=== PATIENT | female | born 1965 | race Caucasian/White ===

== ENCOUNTER 2021-04-04 22:18 | Inpatient (IN) | payer OTHER ==
[~2021-04-04] VITALS: Ht 162.6 cm; Wt 77.1 kg
--- NOTE | 2021-04-04 21:20 | NUR ---
Received report from Leyda LANTIGUA RN from [facility].
[2021-04-04 22:20] VITALS: BP 113/73
--- NOTE | 2021-04-04 22:20 | NUR ---
RADIOCHEMICAL TECHNICIAN NOTE PATIENT TRANSFERRED FROM [place] ACCOMPANIED BY EMT VIA [facility] WITH ACLS PROTOCOL. PATIENT IS AOX3, ON O2, 3L/MIN VIA NC SATURATING 93%. RESPIRATIONS ARE EVEN AND UNLABORED. NO S/S SOB NOTED. NO C/O PAIN NOTED AND IN NO APPARENT DISTRESS. IV RAC 20G, INATAL PHYSICAL ASSESSMENT COMPLETED, SKIN ASSESSMENT COMPLETED, PHOTOS TAKEN AND PLACED IN CHART. TANK FARM ATTENDANT OBTAINED VITALS SIGNS AND COMPLETED BELONGING LIST. BED IS LOW AND LOCKED, HOB ELEVATED IN SEMI FOWLERS, SIDE RIAL UP X2, CALL LIGHT WITHIN REACH, INFORMED ON USE. WILL CONTINUE TO MONITOR THROUGHOUT SHIFT.
[2021-04-04] MEDS ORDERED: ACETAMINOPHEN 325 MG TABLET PO PRN (23:30)
[2021-04-04] MEDS ORDERED: ONDANSETRON HCL/PF 4 MG/2 ML VIAL IVP PRN (23:30)
[2021-04-04] MEDS ORDERED: ALBUTEROL FS 2.5 MG/3 ML VIAL.NEB NEB PRN (23:45)
[2021-04-05] VITALS: BP 117/72
[2021-04-05] MEDS ORDERED: CEFTRIAXONE 1 G VIAL ONE (00:09)
[2021-04-05] MEDS: CEFTRIAXONE 1 G in IV D5W 50 ML IV SCH ×2 (00:12→22:20)
[2021-04-05] MEDS: DEXAMETHASONE SOD PHOSPHATE 10 MG/ML VIAL IV SCH ×3 (00:12→18:26)
[2021-04-05 00:45] LABS: C-REACTIVE PROTEIN 13.3 mg/dL (0.0-0.9)
[2021-04-05 04:00] VITALS: BP 129/73
--- NOTE | 2021-04-05 06:33 | NUR ---
RN NOTES DURING SHIFT NO CHANGES NOTED. NO S/S OF ACUTE DISTRESS NOTED. BREATHING NORMAL NO SOB NOTED. CONTINUES ON O2 3L/MIN VIA NC SATURATING 92%. IV'S INTACT DURING SHIFT ROCEPHIN AND DECADRON GIVEN ORDERED. AM CARE GIVEN KEPT CLEAN DRY AND COMFORTABLE. ALL SAFETY MEASURES IN PLACE, CALL LIGHT WITHIN REACH. WILL ENDORSE TO AM NURSE FOR NILDA.
[2021-04-05 06:40] LABS: BASOPHILS % (AUTO) 0.2 % (0.0-2.0); HEMATOCRIT 41 % (33-45); HEMOGLOBIN 13.8 g/dL (11.5-14.8); LYMPHOCYTES # (AUTO) 0.4 K/uL (0.8-4.8); MEAN CORPUSCULAR HGB CONC 34 g/dl (31.0-36.0); MEAN CORPUSCULAR VOLUME 86 fL (82-100); MONOCYTES # (AUTO) 0.2 K/uL (0.1-1.30); MONOCYTES % (AUTO) 7.6 % (2.0-12.0); NEUTROPHILS # (AUTO) 1.4 K/uL (1.8-8.9); NEUTROPHILS % (AUTO) 72.2 % (43.0-81.0); PLATELET COUNT (AUTO) 241 K/uL (150-450); RED BLOOD CELL COUNT(AUTO) 4.71 MIL/uL (4.0-5.2)
[2021-04-05 07:05] LABS: ALBUMIN 2.9 g/dL (3.4-5.0); BILIRUBIN,TOTAL 0.3 mg/dL (0.2-1.0); CALCIUM, SERUM 8.3 mg/dL (8.5-10.1); CREATININE 0.6 mg/dL (0.6-1.3); MAGNESIUM 2.5 mg/dL (1.8-2.4); PHOSPHORUS 3.4 mg/dL (2.5-4.9); POTASSIUM 3.5 mmol/L (3.5-5.1); TOTAL PROTEIN, SERUM 7.2 g/dL (6.4-8.2)
[2021-04-05 07:38] LABS: THYROID STIMULATING HORMONE 0.341 uIU/mL (0.358-3.74)
[2021-04-05 08:00] VITALS: BP 120/69
[2021-04-05] MEDS: ENOXAPARIN SODIUM 40 MG/0.4 ML DISP.SYRIN SQ SCH (08:45)
--- NOTE | 2021-04-05 09:06 | NUR ---
WOUND CARE CONSULT: REVIEWED CHART, NURSING DOCUMENTATION AND PHOTOS WHICH INDICATE PSORIATIC LESIONS, PRESENT ON ADMISSION. DEFER TO PMD FOR PSORIASIS. DISCUSSED SKIN PROTECTION WITH NURSING STAFF.
[2021-04-05 10:11] LABS: BAND % (MANUAL) 1 % (0.0-5.0); LYMPHOCYTES % (MANUAL) 22 % (16-48); MONOCYTES % (MANUAL) 11 % (0-11.0); NEUTROPHILS % (MANUAL) 66 (42-76)
[2021-04-05 12:00] VITALS: BP 157/71
[2021-04-05] MEDS ORDERED: REMDESIVIR (CHARGED) 200 MG, *LOADING DOSE 1 EA in IV NS 0.9% 210 ML IV ONE (12:00)
[2021-04-05] MEDS: FAMOTIDINE (20 MG) 20 MG TABLET PO SCH (12:35)
[2021-04-05 16:00] VITALS: BP 137/73
[2021-04-05 20:00] VITALS: BP 139/84
--- NOTE | 2021-04-05 21:01 | NUR ---
RT RESPONDED TO A PATIENT ON 3L NASAL CANNULA WHO DESATURATED TO 88%, PLACED PATIENT ON 15L NON REREATHER SPO2 WENT UP TO 96% TO 97%, NOTIFIED RN . WILL CONTINUE TO MONITOR. Addendum: 04/05/21 at 2106 by SAVANA CLIFFORD RT Amended: Links added.
--- NOTE | 2021-04-05 21:08 | NUR ---
RN notes Received patient awake in bed with SOB saturation of 90-91% at 3 lpm O2 via nasal cannula. While monitoring patient after 1 hour, noted that patient's O2 continuously dropped to 86-89%. Seen and evaluated by RT. Changed nasal cannula to non-rebreathing mask with 10lpm O2. Saturation increased to 96%. Will call MD and will continue to monitor.
[2021-04-05] MEDS ORDERED: LORAZEPAM 1 MG TABLET PO ONE (22:00)
--- NOTE | 2021-04-05 22:15 | NUR ---
RT PLACED PATIENT ON HIGH FLOW NASAL CANNULA WITH NOTED SETTINGS PER MD ORDER AFTER PATIENT WAS NOTED TO BE DESATURATING ON 100% NON REBREATHER. PATIENT TOLERATED CURRENT O2 THERAPY . WILL CONTINUE TO MONITOR. Addendum: 04/06/21 at 0003 by SAVANA CLIFFORD RT Amended: Links added.
[2021-04-05] MEDS: AZITHROMYCIN 250 MG TABLET PO SCH (23:38)
[2021-04-06] VITALS: BP 129/76
[2021-04-06 04:00] VITALS: BP 119/77
--- NOTE | 2021-04-06 05:54 | NUR ---
RN notes Orders received from MD. Dr. Gimenez to change from nasal cannula at 5lpm to High Flow to maintian O2sat 90.%. O2sat went up from 88% to 96%. No adverse effect noted, well tolerated. Patient given ativan 1 mg x 1 for anxiety, with help. Vital signs wnl. Kept clean and dry. Will endorse to next shift for continuity of care.
[2021-04-06 06:28] LABS: HEMATOCRIT 39 % (33-45); HEMOGLOBIN 13.5 g/dL (11.5-14.8); LYMPHOCYTES # (AUTO) 0.7 K/uL (0.8-4.8); LYMPHOCYTES % (AUTO) 11.7 % (20.0-44.0); MEAN CORPUSCULAR HGB CONC 35 g/dl (31.0-36.0); MEAN CORPUSCULAR VOLUME 84 fL (82-100); MONOCYTES # (AUTO) 0.5 K/uL (0.1-1.30); MONOCYTES % (AUTO) 9.3 % (2.0-12.0); NEUTROPHILS # (AUTO) 4.6 K/uL (1.8-8.9); PLATELET COUNT (AUTO) 304 K/uL (150-450); RED BLOOD CELL COUNT(AUTO) 4.65 MIL/uL (4.0-5.2); WHITE BLOOD COUNT (AUTO) 5.8 K/uL (4.3-11.0)
[2021-04-06 07:11] LABS: ALBUMIN 2.7 g/dL (3.4-5.0); BILIRUBIN,DIRECT 0.1 mg/dL (0.0-0.2); BILIRUBIN,TOTAL 0.2 mg/dL (0.2-1.0); CALCIUM, SERUM 8.2 mg/dL (8.5-10.1); CREATININE 0.7 mg/dL (0.6-1.3); POTASSIUM 3.4 mmol/L (3.5-5.1); TOTAL PROTEIN, SERUM 6.9 g/dL (6.4-8.2)
--- NOTE | 2021-04-06 07:30 | NUR ---
RN OPENING NOTES RECEIVED PATIENT ASLEEP BUT EASILY ROUSABLE. ON HIGH FLOW AT 35% FIO2 SATURATING 98% AND NOT IN ANY DISTRESS. SR ON TELEMETRY. PERIPHERAL LINE INTACT. NO COMPLAINS OF PAIN. SAFETY CHECKS IN PLACE. WILL CONTINUE TO MONITOR.
[2021-04-06 08:00] VITALS: BP 127/62
[2021-04-06] MEDS: FAMOTIDINE (20 MG) 20 MG TABLET PO SCH (08:25)
[2021-04-06] MEDS: DEXAMETHASONE SOD PHOSPHATE 10 MG/ML VIAL IV SCH ×2 (08:25→17:09)
[2021-04-06] MEDS: ENOXAPARIN SODIUM 40 MG/0.4 ML DISP.SYRIN SQ SCH (08:26)
[2021-04-06] MEDS ORDERED: POTASSIUM CHLORIDE 20 MEQ TAB.PRT.SR PO SCH (09:00)
[2021-04-06] MEDS: REMDESIVIR (CHARGED) 100 MG in IV NS 0.9% 230 ML IV SCH (11:44)
[2021-04-06 12:00] VITALS: BP 127/73
[2021-04-06] MEDS ORDERED: REMDESIVIR (CHARGED) 100 MG in IV NS 0.9% 230 ML IV SCH (12:00)
[2021-04-06 16:00] VITALS: BP 117/73
--- NOTE | 2021-04-06 17:07 | NUR ---
RECEIVED PATIENT ON HIGH FLOW NASAL CANNULA 35L, FIO2 100%. SATURATIONS FLUCTUATE FROM 92-98%. NO RESPIRATORY DISTRESS NOTED. AMBU BAG AT THE BEDSIDE. HIGH FLOW PLUGGED INTO RED OUTLET.
--- NOTE | 2021-04-06 18:32 | NUR ---
RN NOTE PATIENT'S CONDITION REMAINS UNCHANGED. REMAINS ON HIGH FLOW NC 35L WITH 100% FIO2. VERBALIZED FEELINGS OF GRIEF OVER MOTHER'S LOSS. SAFETY CHECKS IN PLACE. WILL CONTINUE TO MONITOR.
--- NOTE | 2021-04-06 19:30 | NUR ---
RN OPENING NOTES PT RECEIVED IN BED. A&OX4, POLISH SPEAKING. PT CURRENTLY ON HIGH FLOW N/C AT 35L WITH FIO2 AT 100% WITH O2 SAT 95% SHOWING NO S/S OF RESPIRATORY DISTRESS/SOB. PT HR IS NORMAL SR. PT IS AMBULATORY AND SKIN IS INTACT. CURRENTLY ON CARDIAC DIET. PT HAS IV ON RIGHT AC, FLUSHED, PATENT, AND INTACT. ALL SAFETY MEASURES IMPLEMENTED. CALL LIGHT WITHIN REACH. BED LOCKED AND IN LOWEST POSITION. BED ALARM ON. WILL CONTINUE TO MONITOR THROUGHOUT THE SHIFT.
[2021-04-06 20:00] VITALS: BP 129/84
--- NOTE | 2021-04-06 22:20 | NUR ---
RN NOTE MRSA SWAB COLLECTED, LAB NOTIFIED.
[2021-04-06] MEDS: AZITHROMYCIN 250 MG TABLET PO SCH (23:10)
[2021-04-06] MEDS: CEFTRIAXONE 1 G in IV D5W 50 ML IV SCH (23:11)
[2021-04-07] VITALS: BP 123/66
[2021-04-07 04:00] VITALS: BP 137/77
[2021-04-07] MEDS ORDERED: LORAZEPAM 1 MG TABLET PO ONE (06:30)
--- NOTE | 2021-04-07 06:31 | NUR ---
RN CLOSING NOTES NO CHANGES IN PT CONDITION THROUGHOUT SHIFT. PT IS ON 35L HIGH FLOW NC WITH FIO2 AT 100% WITH OXYGEN SATURATION AT 95% SHOWING NO S/S OF RESPIRATORY DISTRESS. PT IS NORMAL SR, A&OX4. PT HAS IV ON RIGHT AC AND LEFT HAND, FLUSHED, PATENT, AND INTACT. ALL DUE MEDS GIVEN ORDERED. PT KEPT CLEAN AND COMFORTABLE. ALL SAFETY MEASURES IMPLEMENTED. WILL ENDORSE TO MORNING SHIFT RN FOR NILDA.
[2021-04-07 08:00] VITALS: BP 148/86
--- NOTE | 2021-04-07 08:06 | NUR ---
CARPENTRY SUPERVISOR TELEMETRY OPENING NOTES: Received patient in room in bed and patient is alert and orientated x4. Patient's currently on high flow O2 running @ 35 LPM last O2 reading when rounding @ 0745 AM was 93%. Patient's currently telemetry reading is Sinus Rhythm. Patient is currently using bedpan with assistance and is able to turn and reposition self. Patient's skin is intact, warm and dry to touch. Patient has a Right Antecubital IV Gauge 20 which is currently patent. Patient in bed resting, bed is locked, upper side rails are up and call light is within easy reach. Will continue to monitor patient throughout shift.
[2021-04-07 08:10] LABS: BASOPHILS % (AUTO) 0.2 % (0.0-2.0); HEMATOCRIT 41 % (33-45); HEMOGLOBIN 14.2 g/dL (11.5-14.8); LYMPHOCYTES # (AUTO) 0.7 K/uL (0.8-4.8); LYMPHOCYTES % (AUTO) 7.9 % (20.0-44.0); MEAN CORPUSCULAR HGB CONC 35 g/dl (31.0-36.0); MEAN CORPUSCULAR VOLUME 85 fL (82-100); MONOCYTES # (AUTO) 0.6 K/uL (0.1-1.30); MONOCYTES % (AUTO) 7.4 % (2.0-12.0); NEUTROPHILS # (AUTO) 7.2 K/uL (1.8-8.9); NEUTROPHILS % (AUTO) 84.5 % (43.0-81.0); PLATELET COUNT (AUTO) 363 K/uL (150-450); RED BLOOD CELL COUNT(AUTO) 4.88 MIL/uL (4.0-5.2); WHITE BLOOD COUNT (AUTO) 8.5 K/uL (4.3-11.0)
[2021-04-07] MEDS: FAMOTIDINE (20 MG) 20 MG TABLET PO SCH (08:49)
[2021-04-07] MEDS: ENOXAPARIN SODIUM 40 MG/0.4 ML DISP.SYRIN SQ SCH (08:52)
[2021-04-07] MEDS: DEXAMETHASONE SOD PHOSPHATE 10 MG/ML VIAL IV SCH ×2 (10:13→17:26)
[2021-04-07 10:29] LABS: ALBUMIN 2.9 g/dL (3.4-5.0); BILIRUBIN,DIRECT 0.1 mg/dL (0.0-0.2); BILIRUBIN,TOTAL 0.3 mg/dL (0.2-1.0); CALCIUM, SERUM 8.1 mg/dL (8.5-10.1); CREATININE 0.6 mg/dL (0.6-1.3); POTASSIUM 3.7 mmol/L (3.5-5.1)
[2021-04-07 12:00] VITALS: BP 148/86
[2021-04-07] MEDS: REMDESIVIR (CHARGED) 100 MG in IV NS 0.9% 230 ML IV SCH (12:20)
[2021-04-07 15:12] LABS: C-REACTIVE PROTEIN 1.6 mg/dL (0.0-0.9)
[2021-04-07 16:00] VITALS: BP 133/80
--- NOTE | 2021-04-07 18:51 | NUR ---
ELECTRICAL RESEARCH ENGINEER TELEMETRY CLOSING NOTES: Patient in bed resting and is alert and orientated x4. Patient is currently on High Flow O2 35 LPM last O2 reading when rounding was 94%. Patient's last telemetry reading was Sinus Rhythm. Patient's skin remains intact, warm and dry to touch; patient is using bedpan to void and defecate. Patient's Right Antecubital 20 Gauge IV remains patent. Patient is in bed resting, bed is locked, bed is in lowest position, upper side rails are up and call light within easy reach.
--- NOTE | 2021-04-07 19:20 | NUR ---
RN NOTE RECEIVED PATIENT IN BED RESTING ALERT ORIENTED X4 VERBALLY RESPONSIVE MACEDONIAN SPEAKING ON 35L HIGH FLOW OXYGEN FIO2:100: O2:94%,IV SITE IS ON LEFT HAND INTACT PATENT,AND RIGHT FOREARM IV INFILTRATE,REMOVED AND COOLING MEASURE PROVIDED,CONTINENT TO BOWEL/BLADDER SAFETY MEASURE IMPLEMENT,CALL LIGHT WITHIN REACH,BED IN LOW POSITION AND LOCKED HEAD OF BED ELEVATED,CONTINUE TO MONITOR.
[2021-04-07 20:00] VITALS: BP 138/81
[2021-04-07] MEDS: AZITHROMYCIN 250 MG TABLET PO SCH (22:42)
[2021-04-07] MEDS: CEFTRIAXONE 1 G in IV D5W 50 ML IV SCH (22:44)
--- NOTE | 2021-04-07 23:00 | NUR ---
RN NOTE STARTED A NEW ON RIGHT HAND 22 G WITH GOOD BLOOD RETURN NO INFILTRATION NO SWELLING CONTINUE TO MONITOR.
[2021-04-08] VITALS: BP 135/76
[2021-04-08 04:00] VITALS: BP 135/82
[2021-04-08 06:23] LABS: BASOPHILS % (AUTO) 0.2 % (0.0-2.0); HEMATOCRIT 41 % (33-45); HEMOGLOBIN 14.1 g/dL (11.5-14.8); LYMPHOCYTES # (AUTO) 0.7 K/uL (0.8-4.8); LYMPHOCYTES % (AUTO) 8.5 % (20.0-44.0); MEAN CORPUSCULAR HGB CONC 35 g/dl (31.0-36.0); MEAN CORPUSCULAR VOLUME 85 fL (82-100); MONOCYTES # (AUTO) 0.8 K/uL (0.1-1.30); MONOCYTES % (AUTO) 9.4 % (2.0-12.0); NEUTROPHILS # (AUTO) 6.9 K/uL (1.8-8.9); NEUTROPHILS % (AUTO) 81.9 % (43.0-81.0); PLATELET COUNT (AUTO) 357 K/uL (150-450); RED BLOOD CELL COUNT(AUTO) 4.82 MIL/uL (4.0-5.2); WHITE BLOOD COUNT (AUTO) 8.4 K/uL (4.3-11.0)
--- NOTE | 2021-04-08 06:39 | NUR ---
RN NOTE PATIENT REMAINS ON ALERT ORIENTED X4 VERBALLY RESPONSIVE BHUTANESE SPEAKER, ON 35L HIGH FLOW OXYGEN FIO2:100% O2:93% ALL DUE MEDS GIVEN MD ORDERED KEPT CLEAN AND DRY,KEPT CALL LIGHT WITHIN REACH,ENDORSE NEXT COMING SHIFT FOR CONTINUATION OF CARE.
[2021-04-08 07:15] LABS: ALBUMIN 2.8 g/dL (3.4-5.0); BILIRUBIN,DIRECT 0.1 mg/dL (0.0-0.2); BILIRUBIN,TOTAL 0.3 mg/dL (0.2-1.0); CALCIUM, SERUM 7.9 mg/dL (8.5-10.1); CREATININE 0.6 mg/dL (0.6-1.3); POTASSIUM 3.9 mmol/L (3.5-5.1); TOTAL PROTEIN, SERUM 6.5 g/dL (6.4-8.2)
--- NOTE | 2021-04-08 07:22 | NUR ---
RN NOTE PATIENT AWAKE, ALERT AND ORIENTED X4, ABLE TO VERBALIZE NEEDS, ON O2 HF @35L FIO2 OF 100% , BREATHING EVEN AND UNLABORED O2 SAT OF 95%, ON TELEMONITOR SR OF 70 CONTINENT ON BOWEL AND BLADDER, SKIN INTACT,IV SITE ON RIGHT HAND AND LEFT HAND, IV SITE PATENT, ISOLATION PRECAUTION OBSERVED, WILL CONTINUE TO MONITOR, CALL LIGHT WITHIN REACH, BED WHEELS LOC, SAFETY MEASURE OBSERVED.
[2021-04-08 08:00] VITALS: BP 109/65
--- NOTE | 2021-04-08 08:17 | NUR ---
RN NOTE SEEN BY DR. EWING, CONTINUE REMDISIVIR ORDERED, WILL CONTINUE TO MONITOR PATIENT.
[2021-04-08] MEDS: DEXAMETHASONE SOD PHOSPHATE 10 MG/ML VIAL IV SCH ×2 (08:33→16:13)
[2021-04-08] MEDS: FAMOTIDINE (20 MG) 20 MG TABLET PO SCH (08:33)
[2021-04-08] MEDS: ENOXAPARIN SODIUM 40 MG/0.4 ML DISP.SYRIN SQ SCH ×2 (08:35→20:29)
[2021-04-08 12:00] VITALS: BP 135/82
[2021-04-08] MEDS: REMDESIVIR (CHARGED) 100 MG in IV NS 0.9% 230 ML IV SCH (12:23)
[2021-04-08] MEDS ORDERED: ENOXAPARIN SODIUM 40 MG/0.4 ML DISP.SYRIN SQ SCH (13:30)
[2021-04-08 16:00] VITALS: BP 130/77
--- NOTE | 2021-04-08 19:02 | NUR ---
RN NOTE PATIENT AWAKE, ALERT AND ORIENTED X4, ABLE TO VERBALIZE NEEDS, ON O2 HF AT 40 LPM FIO2 OF 100% , BREATHING EVEN AND UNLABORED O2 SAT OF 96%, ON TELEMONITOR SR OF 70 CONTINENT ON BOWEL AND BLADDER, SKIN INTACT,IV SITE ON RIGHT HAND AND LEFT HAND, IV SITE PATENT, ON IV ATB NO ASE NOTED, ZOFRAN GIVEN FOR COMPLAINS OF NAUSEA, ISOLATION PRECAUTION OBSERVED, WILL CONTINUE TO MONITOR, CALL LIGHT WITHIN REACH, BED WHEELS LOC, SAFETY MEASURE OBSERVED. WILL ENDORSE TO NOC SHIFT
[2021-04-08 20:00] VITALS: BP 127/79
[2021-04-09] VITALS: BP 136/79
[2021-04-09] MEDS: AZITHROMYCIN 250 MG TABLET PO SCH ×2 (00:15→23:52)
[2021-04-09] MEDS: CEFTRIAXONE 1 G in IV D5W 50 ML IV SCH ×2 (00:15→23:52)
[2021-04-09 04:00] VITALS: BP 128/56
[2021-04-09 06:30] LABS: BASOPHILS % (AUTO) 0.1 % (0.0-2.0); HEMATOCRIT 42 % (33-45); HEMOGLOBIN 14.3 g/dL (11.5-14.8); LYMPHOCYTES # (AUTO) 0.9 K/uL (0.8-4.8); LYMPHOCYTES % (AUTO) 8.2 % (20.0-44.0); MEAN CORPUSCULAR HGB CONC 34 g/dl (31.0-36.0); MEAN CORPUSCULAR VOLUME 84 fL (82-100); MONOCYTES # (AUTO) 0.9 K/uL (0.1-1.30); MONOCYTES % (AUTO) 7.9 % (2.0-12.0); NEUTROPHILS # (AUTO) 9.2 K/uL (1.8-8.9); NEUTROPHILS % (AUTO) 83.8 % (43.0-81.0); PLATELET COUNT (AUTO) 373 K/uL (150-450); RED BLOOD CELL COUNT(AUTO) 4.98 MIL/uL (4.0-5.2)
[2021-04-09 06:54] LABS: ALBUMIN 2.8 g/dL (3.4-5.0); BILIRUBIN,DIRECT 0.1 mg/dL (0.0-0.2); BILIRUBIN,TOTAL 0.3 mg/dL (0.2-1.0); CALCIUM, SERUM 8.1 mg/dL (8.5-10.1); CREATININE 0.7 mg/dL (0.6-1.3); TOTAL PROTEIN, SERUM 6.6 g/dL (6.4-8.2)
--- NOTE | 2021-04-09 07:20 | NUR ---
RN NOTE PATIENT AWAKE, ALERT AND ORIENTED X4, ABLE TO VERBALIZE NEEDS, ON O2 HF AT 40 LPM FIO2 OF 100% , BREATHING EVEN AND UNLABORED O2 SAT OF 95%, ON TELEMONITOR SR OF 73 CONTINENT ON BOWEL AND BLADDER, SKIN INTACT,IV SITE ON RIGHT HAND AND LEFT HAND, IV SITE PATENT, ON IV ATB NO ASE NOTED, , ISOLATION PRECAUTION OBSERVED, WILL CONTINUE TO MONITOR, CALL LIGHT WITHIN REACH, BED WHEELS LOC, SAFETY MEASURE OBSERVED.
[2021-04-09 08:00] VITALS: BP 118/82
[2021-04-09] MEDS: DEXAMETHASONE SOD PHOSPHATE 10 MG/ML VIAL IV SCH ×2 (09:22→16:51)
[2021-04-09] MEDS: FAMOTIDINE (20 MG) 20 MG TABLET PO SCH (09:22)
[2021-04-09] MEDS: ENOXAPARIN SODIUM 40 MG/0.4 ML DISP.SYRIN SQ SCH ×2 (09:23→20:51)
--- NOTE | 2021-04-09 10:00 | NUR ---
RN NOTE PATIENT SEEN BY DR. DONTE DR. UPDATED REGARDING PATIENT CURRENT CONDITION, PER MD ENCOURAGE PATIENT FREQUENT PRONING POSITION TOLERATED.
--- NOTE | 2021-04-09 10:08 | NUR ---
RN NOTE PATIENT SEEN BY DR. ORDOÑEZ,UPDATED MD REGARDING PATIENT CURRENT CONDITION. NO NEW ORDERS AT THIS TIME, WILL CONTINUE TO MONITOR.
[2021-04-09 11:40] LABS: C-REACTIVE PROTEIN 0.7 mg/dL (0.0-0.9)
[2021-04-09 12:00] VITALS: BP 125/72
[2021-04-09] MEDS: REMDESIVIR (CHARGED) 100 MG in IV NS 0.9% 230 ML IV SCH (12:13)
[2021-04-09 16:00] VITALS: BP 125/69
--- NOTE | 2021-04-09 18:39 | NUR ---
RN NOTE PATIENT AWAKE, ALERT AND ORIENTED X4, CONTINENT ON BOWEL AND BLADDER, USES THE BED ROSALES, ABLE TO VERBALIZE NEEDS, ON O2 HF AT 40 LPM FIO2 OF 100% , BREATHING EVEN AND UNLABORED O2 SAT OF 95%, ON TELEMONITOR SR OF 73 CONTINENT ON BOWEL AND BLADDER, SKIN INTACT,IV SITE ON LEFT HAND, IV SITE PATENT, ON IV ATB NO ASE NOTED, , ISOLATION PRECAUTION OBSERVED, WILL CONTINUE TO MONITOR, CALL LIGHT WITHIN REACH, BED WHEELS LOCK, SAFETY MEASURE OBSERVED. WILL ENDORSE TO NOC SHIFT.
[2021-04-09 20:00] VITALS: BP_SYST 116; BP_SYST 131; BP_DIAS 70; BP_DIAS 86
[2021-04-10] VITALS: BP 133/76
[2021-04-10 04:00] VITALS: BP 125/85
[2021-04-10 06:54] LABS: BASOPHILS % (AUTO) 0.3 % (0.0-2.0); HEMATOCRIT 44 % (33-45); LYMPHOCYTES # (AUTO) 0.9 K/uL (0.8-4.8); LYMPHOCYTES % (AUTO) 11.2 % (20.0-44.0); MEAN CORPUSCULAR HGB CONC 34 g/dl (31.0-36.0); MEAN CORPUSCULAR VOLUME 85 fL (82-100); MONOCYTES # (AUTO) 0.7 K/uL (0.1-1.30); MONOCYTES % (AUTO) 8.6 % (2.0-12.0); NEUTROPHILS # (AUTO) 6.1 K/uL (1.8-8.9); NEUTROPHILS % (AUTO) 79.9 % (43.0-81.0); PLATELET COUNT (AUTO) 442 K/uL (150-450); RED BLOOD CELL COUNT(AUTO) 5.18 MIL/uL (4.0-5.2); WHITE BLOOD COUNT (AUTO) 7.7 K/uL (4.3-11.0)
[2021-04-10 07:48] LABS: CALCIUM, SERUM 8.4 mg/dL (8.5-10.1); CREATININE 0.6 mg/dL (0.6-1.3); POTASSIUM 4.1 mmol/L (3.5-5.1)
--- NOTE | 2021-04-10 07:50 | NUR ---
RN NOTE PATIENT IS IN BED WITH HOB AT SEMI FOWLERS POSITION. PATIENT IS ON HI FLOW 40L 100%. PATIENT IS AOX3. LHAND IV ACCESS IS PATENT AND INTACT. BED IS LOCKED IN THE LOWEST POSITION, 3 GUARD RAILS RAISED, CALL BEAL WITHIN REACH, AND ALL HOSPITAL SAFETY PRECAUTIONS ARE BEING FOLLOWED. WILL CONTINUE TO MONITOR THROUGHOUT SHIFT.
[2021-04-10 08:00] VITALS: BP 120/77
[2021-04-10] MEDS: FAMOTIDINE (20 MG) 20 MG TABLET PO SCH (08:40)
[2021-04-10] MEDS: ENOXAPARIN SODIUM 40 MG/0.4 ML DISP.SYRIN SQ SCH ×2 (08:41→21:45)
[2021-04-10] MEDS: DEXAMETHASONE SOD PHOSPHATE 10 MG/ML VIAL IV SCH (08:42)
[2021-04-10 12:00] VITALS: BP 115/66
[2021-04-10] MEDS ORDERED: diphenhydrAMINE HCL 50 MG/ML VIAL IV ONE (13:00)
[2021-04-10] MEDS ORDERED: NS 0.9% IV ONE (13:00)
[2021-04-10] MEDS ORDERED: ACETAMINOPHEN 325 MG TABLET PO ONE (13:00)
[2021-04-10] MEDS ORDERED: TOCILIZUMAB IV ONE (13:00)
[2021-04-10 16:00] VITALS: BP 124/84
--- NOTE | 2021-04-10 18:53 | NUR ---
RN NOTE PATIENT IS IN BED WITH HOB AT SEMI FOWLERS POSITION. PATIENT IS ON HI FLOW 40L 70% WITH NO SIGNS OF LABORED BREATHING. PATIENT IS AOX3. LHAND IV ACCESS IS PATENT AND INTACT. BED IS LOCKED IN THE LOWEST POSITION, 3 GUARD RAILS RAISED, CALL BEAL WITHIN REACH, AND ALL HOSPITAL SAFETY PRECAUTIONS ARE BEING FOLLOWED. ALL DUE MEDS GIVEN AND PATIENT REMAINED STABLE THROUGHOUT SHIFT. WILL ENDORSE TO GREEN BUILDING MATERIALS DESIGNER RN.
[2021-04-10 20:00] VITALS: BP 115/98
--- NOTE | 2021-04-10 20:05 | NUR ---
RN NOTE REC'D PT IN BED. A/O X4. ICELANDIC SPEAKING, ABLE TO MAKE NEEDS KNOWN. PT IS ON HIGH FLOW NC, 40L AT 70% TOLERATING WELL, PT DENIES SOB. DIFFICULTY BREATHING. O2 IS 95% AT THIS TIME. DENIES PAIN. ON TELE MONITOR PRESENTS WITH NSR INVERTED TWAVE OCCASIONALLY. HEART RATE 80S. PT IV SITE FLUSHED ASEPTICALLY. PATENT. DRESSING CLEAN DRY INTACT. ISOLATION PRECAUTIONS IN PLACE FOR POSITIVE COVID RESULT. PT SAFETY MEASURES IN PLACE HOB ELEVATED. SIDE RAILS UP X2 BED LOCKED IN LOWEST POSITION WITH BED ALARM ON. CALL LIGHT WITHIN REACH. WILL CONT TO MONITOR CLOSELY.
[2021-04-10] MEDS ORDERED: CEFTRIAXONE 1 G VIAL ONE (22:57)
[2021-04-10] MEDS: CEFTRIAXONE 1 G in IV D5W 50 ML IV SCH (23:00)
--- NOTE | 2021-04-10 23:01 | NUR ---
RX PHARMACY-ROCEPHIN MEDICATION STOCKED MED PULLED OUT DUE TO ORIGINAL MEDICATION PREVIOUSLY PREPARED WAS DAMAGED, LEAKING. FIELD IRRIGATION WORKER AWARE
[2021-04-11] VITALS: BP 133/65
[2021-04-11 04:00] VITALS: BP 136/73
[2021-04-11 06:27] LABS: BASOPHILS % (AUTO) 0.2 % (0.0-2.0); EOSINOPHILS % (AUTO) 0.4 % (0.0-6.0); HEMATOCRIT 43 % (33-45); HEMOGLOBIN 14.8 g/dL (11.5-14.8); LYMPHOCYTES # (AUTO) 1.3 K/uL (0.8-4.8); LYMPHOCYTES % (AUTO) 18.4 % (20.0-44.0); MEAN CORPUSCULAR HGB CONC 34 g/dl (31.0-36.0); MEAN CORPUSCULAR VOLUME 85 fL (82-100); MONOCYTES # (AUTO) 0.7 K/uL (0.1-1.30); MONOCYTES % (AUTO) 9.1 % (2.0-12.0); NEUTROPHILS # (AUTO) 5.3 K/uL (1.8-8.9); NEUTROPHILS % (AUTO) 71.9 % (43.0-81.0); PLATELET COUNT (AUTO) 468 K/uL (150-450); RED BLOOD CELL COUNT(AUTO) 5.12 MIL/uL (4.0-5.2); WHITE BLOOD COUNT (AUTO) 7.3 K/uL (4.3-11.0)
[2021-04-11 06:44] LABS: CALCIUM, SERUM 8.4 mg/dL (8.5-10.1); CREATININE 0.7 mg/dL (0.6-1.3); POTASSIUM 4.1 mmol/L (3.5-5.1)
--- NOTE | 2021-04-11 06:47 | NUR ---
RN CLOSING NOTES PT REMAINS ON 40L HF AT 70% NO CHANGES. NO DISTRESS NOTED. ALL DUE MEDS GIVEN. PT DENIES PAIN AT THIS TIME. ALL NEEDS ATTENDED. PT USES BED ROSALES X3, NO BM NOTED. SAFETY MEASURES IN PLACE. HOB ELEVATED, SIDE RAILS UP X2 BED LOCKED IN LOWEST POSITION WITH BED ALARM ON. CALL LIGHT WITHIN REACH. WILL ENDORSE TO DAY SHIFT RN FOR CONTINUATION OF CARE.
[2021-04-11 08:00] VITALS: BP 136/73
[2021-04-11] MEDS: DEXAMETHASONE SOD PHOSPHATE 10 MG/ML VIAL IV SCH (08:58)
[2021-04-11] MEDS: FAMOTIDINE (20 MG) 20 MG TABLET PO SCH (08:58)
[2021-04-11] MEDS: ENOXAPARIN SODIUM 40 MG/0.4 ML DISP.SYRIN SQ SCH ×2 (09:14→20:43)
[2021-04-11 12:00] VITALS: BP 131/70
[2021-04-11 13:33] LABS: C-REACTIVE PROTEIN 0.5 mg/dL (0.0-0.9)
[2021-04-11 16:00] VITALS: BP 120/70
[2021-04-11 20:00] VITALS: BP 147/60
[2021-04-12] VITALS: BP 140/62
[2021-04-12 04:00] VITALS: BP 126/68
[2021-04-12 06:11] LABS: BASOPHILS % (AUTO) 0.1 % (0.0-2.0); EOSINOPHILS % (AUTO) 1.9 % (0.0-6.0); HEMATOCRIT 43 % (33-45); HEMOGLOBIN 15.1 g/dL (11.5-14.8); LYMPHOCYTES # (AUTO) 1.7 K/uL (0.8-4.8); LYMPHOCYTES % (AUTO) 24.7 % (20.0-44.0); MEAN CORPUSCULAR HGB CONC 35 g/dl (31.0-36.0); MEAN CORPUSCULAR VOLUME 84 fL (82-100); MONOCYTES # (AUTO) 0.5 K/uL (0.1-1.30); MONOCYTES % (AUTO) 7.3 % (2.0-12.0); NEUTROPHILS # (AUTO) 4.4 K/uL (1.8-8.9); PLATELET COUNT (AUTO) 470 K/uL (150-450); RED BLOOD CELL COUNT(AUTO) 5.13 MIL/uL (4.0-5.2); WHITE BLOOD COUNT (AUTO) 6.7 K/uL (4.3-11.0)
--- NOTE | 2021-04-12 06:18 | NUR ---
ENDBAND CUTTER HAND NOTES AWAKE & RESPONSIVE. NOT IN ANY DISTRESS. NO SOB NOTED. DENIES ANY PAIN OR DISCOMFORT AT THIS TIME. ON TELE SR @ 77 WITH IV-HL PATENT & INTACT. MONITORED ACCORDINGLY. CALL LIGHT WITHIN REACH. BED IN LOWEST POSITION. SR UP X 3 WITH BED ALARM ON FOR SAFETY. WILL ENDORSE TO NEXT SHIFT.
[2021-04-12 06:30] LABS: CALCIUM, SERUM 8.4 mg/dL (8.5-10.1); CREATININE 0.7 mg/dL (0.6-1.3)
--- NOTE | 2021-04-12 07:30 | NUR ---
SHANK INSPECTOR NOTE PATIENT IS IN BED WITH HOB AT SEMI FOWLERS POSITION. PATIENT IS ON HI FLOW 40L 70% WITH NO SIGNS OF DISTRESS, RESPIRATION UNLABORED. PATIENT IS AOX3. SR HR 93 ON MONITOR. DENIES PAIN OR DISCOMFORT AT THIS TIME. LEFT HAND IV ACCESS FLUSHES WELL. SITE CLEAR. CARDIAC DIET. BRP. PLAN OF CARE DISCUSSED, VERBALIZED UNDERSTANDING. ISOLATION PRECAUTION OBSERVED. SAFETY MEASURE IN PLACE. BED LOW LOCKED, SR UP X 2. CALL BEAL WITHIN REACH, WILL CONTINUE TO MONITOR
[2021-04-12 08:00] VITALS: BP 91/57
[2021-04-12] MEDS: ENOXAPARIN SODIUM 40 MG/0.4 ML DISP.SYRIN SQ SCH ×2 (09:06→20:45)
[2021-04-12] MEDS: DEXAMETHASONE SOD PHOSPHATE 10 MG/ML VIAL IV SCH (09:06)
[2021-04-12] MEDS: FAMOTIDINE (20 MG) 20 MG TABLET PO SCH (09:06)
--- NOTE | 2021-04-12 09:30 | NUR ---
RN NOTES DUE MEDS GIVEN
[2021-04-12 11:01] VITALS: BP 91/57
--- NOTE | 2021-04-12 13:54 | NUR ---
RT REMOVED HFNC AND PLACED PT ON 6LPM VIA NC. SpO2 97%, HR 76. JAMIE LOAIZA NOTIFIED AND AWARE. WILL CONTINUE TO MONITOR THE PATIENT CLOSELY FOR ANY CHANGE OF CONDITION. Addendum: 04/12/21 at 1658 by ROMMEL VIDALES RT Amended: Links added.
[2021-04-12 16:00] VITALS: BP 112/77
--- NOTE | 2021-04-12 18:59 | NUR ---
RN NOTES ALL NEEDS MET. PATIENT RESTING COMFORTABLY NOT IN ANY DISTRESS. CALL LIGHT WITHIN REACH. SAFETY MEASURES IN PLACE. WILL ENDORSE TO NEXT SHIFT FOR NILDA.
--- NOTE | 2021-04-12 19:53 | NUR ---
ankle patch molder Opening Notes Patient was last seen awake in bed resting. Patient's alert and oriented x4. Patient's on 6 liters of oxygen/minute via nasal cannula with no respiratory distress noted. Patient's connected to a tele monitor with no cardiac distress noted. Patient has an HL on her left hand. Patient's in no acute distress at this time. Safety measures in place: Bed locked, bed alarm on, side rails up x3, and call light within reach of the patient. Will continue to monitor the patient.
[2021-04-12 20:00] VITALS: BP 125/80
[2021-04-13] VITALS: BP 110/72
[2021-04-13 04:00] VITALS: BP 110/74
--- NOTE | 2021-04-13 06:31 | NUR ---
high school teacher Closing Notes Patient was last seen sleeping in bed. Patient's alert and oriented x4. Patient's on 6 liters of oxygen/minute via nasal cannula with no respiratory distress noted. Patient's connected to a tele monitor with no cardiac distress noted. Patient has an HL on her left hand. Patient's in no acute distress at this time. Safety measures in place: Bed locked, bed alarm on, side rails up x3, and call light within reach of the patient. Will endorse care to the day shift nurse. Addendum: 04/13/21 at 0633 by FRANCISCA SIMMONS RN HL on left hand is currently intact, patent, and flushes well.
[2021-04-13 07:29] LABS: BASOPHILS % (AUTO) 0.2 % (0.0-2.0); EOSINOPHILS % (AUTO) 0.9 % (0.0-6.0); HEMATOCRIT 44 % (33-45); HEMOGLOBIN 14.9 g/dL (11.5-14.8); LYMPHOCYTES # (AUTO) 1.1 K/uL (0.8-4.8); LYMPHOCYTES % (AUTO) 15.7 % (20.0-44.0); MEAN CORPUSCULAR HGB CONC 34 g/dl (31.0-36.0); MEAN CORPUSCULAR VOLUME 85 fL (82-100); MONOCYTES # (AUTO) 0.6 K/uL (0.1-1.30); MONOCYTES % (AUTO) 8.4 % (2.0-12.0); NEUTROPHILS # (AUTO) 5.3 K/uL (1.8-8.9); NEUTROPHILS % (AUTO) 74.8 % (43.0-81.0); PLATELET COUNT (AUTO) 478 K/uL (150-450); RED BLOOD CELL COUNT(AUTO) 5.14 MIL/uL (4.0-5.2); WHITE BLOOD COUNT (AUTO) 7.1 K/uL (4.3-11.0)
--- NOTE | 2021-04-13 07:30 | NUR ---
PARTITION ASSEMBLER AM NOTE PATIENT IN BED, HOB AT SEMI FOWLERS POSITION. PATIENT IS ON 6L NASAL CANULA SATTING 98%. WITH NO SIGNS OF DISTRESS, RESPIRATION UNLABORED. PATIENT IS AOX3. SR HR 90 ON MONITOR. DENIES PAIN OR DISCOMFORT AT THIS TIME. LEFT HAND IV ACCESS FLUSHES WELL. SITE CLEAR. CARDIAC DIET. BRP. PLAN OF CARE DISCUSSED, VERBALIZED UNDERSTANDING. ISOLATION PRECAUTION OBSERVED. SAFETY MEASURE IN PLACE. BED LOW LOCKED, SR UP X 2. CALL BEAL WITHIN REACH, WILL CONTINUE TO MONITOR
[2021-04-13 07:51] LABS: CALCIUM, SERUM 8.6 mg/dL (8.5-10.1); CREATININE 0.6 mg/dL (0.6-1.3)
[2021-04-13 08:00] VITALS: BP_SYST 114; BP_SYST 155; BP_DIAS 71; BP_DIAS 85
[2021-04-13] MEDS: DEXAMETHASONE SOD PHOSPHATE 10 MG/ML VIAL IV SCH (08:52)
[2021-04-13] MEDS: FAMOTIDINE (20 MG) 20 MG TABLET PO SCH (08:52)
[2021-04-13] MEDS: ENOXAPARIN SODIUM 40 MG/0.4 ML DISP.SYRIN SQ SCH ×2 (08:53→20:53)
--- NOTE | 2021-04-13 09:30 | NUR ---
RN NOTES DUE MEDS GIVEN
[2021-04-13 12:00] VITALS: BP 114/71
[2021-04-13 16:00] VITALS: BP 124/77
--- NOTE | 2021-04-13 19:39 | NUR ---
RN NOTE RECEIVED PATIENT IN BED A/O X 3 ROMANIAN SPEAKING, CURRENTLY IN SEMI FOWLERS POSITION. ON 6L NC, O2 SAT AT 98%. NO SIGNS OF RESPIRATORY DISTRESS, RESPIRATION EVEN AND UNLABORED AT THIS TIME. SR ON MONITOR. DENIES PAIN OR DISCOMFORT AT THIS TIME. IV TO LEFT HAND PATENT, INTACT AND FLUSHING WELL. SAFETY MEASURE IN PLACE. BED LOCKED AND IN THE LOWEST POSITION, SR UP X 2. CALL LIGHT WITHIN REACH, WILL CONTINUE TO MONITOR PATIENT
[2021-04-13 20:00] VITALS: BP 122/71
--- NOTE | 2021-04-13 23:00 | NUR ---
Report received by nurse. Patient is A&Ox4. On continuous O2 sat currently at 96% on 6L O2. On tele monitor checked lead placement. No signs of distress. Patient is able to make needs known. Will continue to monitor.
[2021-04-14] VITALS: BP 100/61
[2021-04-14 04:00] VITALS: BP 118/76
--- NOTE | 2021-04-14 06:23 | NUR ---
LINER REPLACER CLOSING NOTES NO overnight events. Patient A&Ox4. Continuous pulse ox -O2 sats stayed above 95%. On tele monitor borderline SB/SR. Currently 60bpm. Slept well throughout the night though easy to wake. L hand IV #20G intact and patent -flushed. No episodes or SOB or respiratory distress.
[2021-04-14 06:39] LABS: BASOPHILS % (AUTO) 0.2 % (0.0-2.0); EOSINOPHILS % (AUTO) 1.7 % (0.0-6.0); HEMATOCRIT 43 % (33-45); HEMOGLOBIN 14.5 g/dL (11.5-14.8); LYMPHOCYTES # (AUTO) 1.7 K/uL (0.8-4.8); MEAN CORPUSCULAR HGB CONC 34 g/dl (31.0-36.0); MEAN CORPUSCULAR VOLUME 85 fL (82-100); MONOCYTES # (AUTO) 0.8 K/uL (0.1-1.30); NEUTROPHILS # (AUTO) 5.2 K/uL (1.8-8.9); NEUTROPHILS % (AUTO) 66.1 % (43.0-81.0); PLATELET COUNT (AUTO) 428 K/uL (150-450); RED BLOOD CELL COUNT(AUTO) 5.02 MIL/uL (4.0-5.2); WHITE BLOOD COUNT (AUTO) 7.9 K/uL (4.3-11.0)
[2021-04-14 07:32] LABS: CALCIUM, SERUM 8.4 mg/dL (8.5-10.1); CREATININE 0.7 mg/dL (0.6-1.3)
[2021-04-14 08:00] VITALS: BP 111/72
[2021-04-14] MEDS: FAMOTIDINE (20 MG) 20 MG TABLET PO SCH (08:39)
[2021-04-14] MEDS: DEXAMETHASONE SOD PHOSPHATE 10 MG/ML VIAL IV SCH (08:39)
[2021-04-14] MEDS: ENOXAPARIN SODIUM 40 MG/0.4 ML DISP.SYRIN SQ SCH ×2 (08:41→20:13)
[2021-04-14 12:00] VITALS: BP 97/61
[2021-04-14 16:00] VITALS: BP 106/50
--- NOTE | 2021-04-14 19:49 | NUR ---
RN NOTE PATIENT AWAKE, ALERT AND ORIENTED X4. ON O2 2L VIA NASAL CANNULA. DENIES ANY PAIN AT THIS TIME. HAD X1 MEDIUM BROWN BM AT THIS TIME. KEPT CLEAN AND DRY. LEFT HAND # 20 PATENT AND INTACT. NO SIGNS OF ANY DISTRESS NOTED. BED LOCKED AND IN LOWEST POSITION. CALL LIGHT WITHIN REACH. ALL NEEDS ANTICIPATED.
[2021-04-14 20:00] VITALS: BP 108/73
[2021-04-15] VITALS: BP 119/70
[2021-04-15 04:00] VITALS: BP 97/63
[2021-04-15 06:24] LABS: BASOPHILS % (AUTO) 0.1 % (0.0-2.0); EOSINOPHILS % (AUTO) 0.5 % (0.0-6.0); HEMATOCRIT 41 % (33-45); HEMOGLOBIN 14.1 g/dL (11.5-14.8); LYMPHOCYTES # (AUTO) 1.3 K/uL (0.8-4.8); LYMPHOCYTES % (AUTO) 15.8 % (20.0-44.0); MEAN CORPUSCULAR HGB CONC 34 g/dl (31.0-36.0); MEAN CORPUSCULAR VOLUME 85 fL (82-100); MONOCYTES # (AUTO) 0.8 K/uL (0.1-1.30); MONOCYTES % (AUTO) 10.3 % (2.0-12.0); NEUTROPHILS # (AUTO) 5.9 K/uL (1.8-8.9); NEUTROPHILS % (AUTO) 73.3 % (43.0-81.0); PLATELET COUNT (AUTO) 419 K/uL (150-450); RED BLOOD CELL COUNT(AUTO) 4.82 MIL/uL (4.0-5.2); WHITE BLOOD COUNT (AUTO) 8.1 K/uL (4.3-11.0)
[2021-04-15 06:52] LABS: CALCIUM, SERUM 8.5 mg/dL (8.5-10.1); CREATININE 0.6 mg/dL (0.6-1.3); POTASSIUM 4.1 mmol/L (3.5-5.1)
--- NOTE | 2021-04-15 07:25 | NUR ---
RN NOTE PATIENT ALERT AND ORIENTED X4.DENIES ANY PAIN AT THIS TIME. NO SIGNIFICANT CHANGES DURING THIS SHIFT. LEFT HAND # 20 PATENT AND INTACT. BED LOCKED AND IN LOWEST POSITION. CALL LIGHT WITHIN REACH. ENDORSED TO AM SHIFT.
--- NOTE | 2021-04-15 07:49 | NUR ---
MANAGER OFFICE OPENING NOTES RECEIVED PATIENT IN BED ASLEEP, EASY TO AROUSE. ALERT AND ORIENTED X4, KYRGYZ SPEAKING. ABLE TO MAKE NEEDS KNOWN. NO SIGNS OR SYMPTOMS OF DISTRESS NOTED. IV ACCESS AND#20 SL PATENT AND INTACT. SAFETY MEASURES IN PLACE WITH BED LOCKED AT LOW POSITION, SIDE RAILS UP X2. CALL LIGHT IS WITHIN REACH. WILL CONTINUE TO MONITOR PATIENT THROUGHOUT SHIFT.
[2021-04-15 08:00] VITALS: BP 111/68
[2021-04-15] MEDS: DEXAMETHASONE SOD PHOSPHATE 10 MG/ML VIAL IV SCH (08:45)
[2021-04-15] MEDS: FAMOTIDINE (20 MG) 20 MG TABLET PO SCH (08:45)
[2021-04-15] MEDS: ENOXAPARIN SODIUM 40 MG/0.4 ML DISP.SYRIN SQ SCH ×2 (08:46→21:46)
[2021-04-15 12:00] VITALS: BP 110/73
[2021-04-15 16:00] VITALS: BP 110/73
--- NOTE | 2021-04-15 18:41 | NUR ---
LOAD DISPATCHER LOCAL CLOSING NOTE PATIENT IS IN BED AWAKE, RESTING COMFORTABLY. ALERT AND ORIENTED X4, NEPALESE SPEAKING. NO SIGNS OR SYMPTOMS OF DISTRESS NOTED. NO SOB. IV ACCESS LHAND#20 SL PATENT AND INTACT. TOLERATING WELL ON ROOM AIR O2 SAT 94%-96%. SAFETY MEASURES IN PLACE WITH BED LOCKED AT LOW POSITION, SIDE RAILS UP X2. CALL LIGHT IS WITHIN REACH. WILL ENDORSE CONTINUITY OF CARE TO NEXT SHIFT.
[2021-04-15 20:00] VITALS: BP 119/68
--- NOTE | 2021-04-15 20:00 | NUR ---
MS TELE OPENING NOTES: RECEIVED PATIENT AWAKE IN BED, BED IN LOW POSITION, CALL LIGHTS WITHIN REACH, NO COMPLAIN OF PAIN AND DISCOMFORT AT THIS TIME, WITH L HAND #20 IV LINE SL PATIENT IS AMBULATORY, COVID POSITIVE, NO SOB OR ANY RESPIRATORY DISTRESS OBSERVED, PATIENT KEPT CLEAN AND DRY, ALL NEEDS MET, WILL CONTINUE TO MONITOR
[2021-04-16] VITALS: BP 120/66
[2021-04-16 04:00] VITALS: BP 102/58
[2021-04-16 06:42] LABS: BASOPHILS % (AUTO) 0.4 % (0.0-2.0); EOSINOPHILS % (AUTO) 0.4 % (0.0-6.0); HEMATOCRIT 39 % (33-45); HEMOGLOBIN 13.3 g/dL (11.5-14.8); LYMPHOCYTES # (AUTO) 1.6 K/uL (0.8-4.8); LYMPHOCYTES % (AUTO) 20.8 % (20.0-44.0); MEAN CORPUSCULAR HGB CONC 34 g/dl (31.0-36.0); MEAN CORPUSCULAR VOLUME 86 fL (82-100); MONOCYTES # (AUTO) 0.9 K/uL (0.1-1.30); MONOCYTES % (AUTO) 11.4 % (2.0-12.0); NEUTROPHILS # (AUTO) 5.1 K/uL (1.8-8.9); PLATELET COUNT (AUTO) 367 K/uL (150-450); RED BLOOD CELL COUNT(AUTO) 4.57 MIL/uL (4.0-5.2); WHITE BLOOD COUNT (AUTO) 7.6 K/uL (4.3-11.0)
[2021-04-16 07:01] LABS: CALCIUM, SERUM 8.4 mg/dL (8.5-10.1); CREATININE 0.6 mg/dL (0.6-1.3); POTASSIUM 3.8 mmol/L (3.5-5.1)
--- NOTE | 2021-04-16 07:19 | NUR ---
HEALTH INSURANCE SPECIALIST CLOSING NOTES PATIENT SLEEP IN BED AROUSABLE TO STIMULI BED IN LOW POSITION, CALL LIGHTS WITHIN REACH, NO COMPLAIN OF PAIN AND DISCOMFORT AT THIS TIME ON TELE MONITORING WITH READING OF SB 48-49, ON O2 INHALATION AT 2LPM , PATIENT SOMETIMES WEAN THE O2 AND SHIFT TO RA TOLERATING WELL NO SOB OR ANY RESP DISTRESS OBSERVED PATIENT WAS COVID POSITIVE, AMBULATORY, ALERT AND ORIENTED X4 AND ABLE TO MAKE NEEDS KNOWN, KEPT CLEAN AND DRY ALL NEEDS MET, ENDORSE TO INCOMING SHIFT.
--- NOTE | 2021-04-16 07:25 | NUR ---
RN NOTE OBSERVED PATIENT IN BED, AWAKE ALERT AND ORIENTED X3 ABLE TO VERBALIZE NEEDS, ON 02VIA NC @ 2LPM O2 SAT OF 96% BREATHING EVEN AND UNLABORED, PATIENT ABLE TO SELF PRONE PRN, ISOLATION PRECAUTION OBSERVED, WILL CONTINUE TO MONITOR, BED WHEELS LOCK, CALL LIGHT WITHIN REACH, SAFETY MEASURE OBSERVED.
[2021-04-16 08:00] VITALS: BP 117/72
[2021-04-16] MEDS: DEXAMETHASONE SOD PHOSPHATE 10 MG/ML VIAL IV SCH (08:25)
[2021-04-16] MEDS: FAMOTIDINE (20 MG) 20 MG TABLET PO SCH (08:25)
[2021-04-16] MEDS: ENOXAPARIN SODIUM 40 MG/0.4 ML DISP.SYRIN SQ SCH (08:25)
--- NOTE | 2021-04-16 08:38 | NUR ---
RN NOTE PATIENT ON ROOM AIR O2 SAT BETWEEN 94%-97%, TOLERATING WELL, BREATHING EVEN AND UNLABORED.
--- NOTE | 2021-04-16 09:30 | NUR ---
RN NOTE PATIENT SEEN BY DR. ORDOÑEZ, PATIENT O2 SAT OF 96% ON ROOM AIR, OK TO DISCHARGE PATIENT.
--- NOTE | 2021-04-16 10:03 | NUR ---
RN NOTE PATIENT SEEN BY Niles PITTMAN, UPDATED PATIENT REGARDING PATIENT CURRENT CONDITION, PATIENT OK TO DISCHARGE.
[2021-04-16] MEDS ORDERED: DEXA4TAB PO (11:08)
[2021-04-16] MEDS ORDERED: ALBU8.5H8 INH (11:08)
[2021-04-16 12:00] VITALS: BP 107/61
--- NOTE | 2021-04-16 12:25 | NUR ---
RN NOTE PATIENT DESATURATE TO 86% ON ROOM AT REST, PLACE ON O2 @ 2LPM VIA NC.
[2021-04-16 16:00] VITALS: BP 111/64
--- NOTE | 2021-04-16 17:51 | NUR ---
RN NOTE PATIENT FOR DISCHARGE TO HOME, VTS STABLE AND WNL, ON ROOM AIR, COVID 19 EDUCATION GIVEN PER DISCHARGE, TRANSPORTED VIA AMBULANCE TO HOME.
== END 2021-04-16 17:58 | disposition home or self-care (01) | DRG 177 ==
LOC: TELE-TD 22:18 → TELE1 23:45 → MEDSG1 04-16 08:50
PROVIDERS: ADMIT Registered Nurse; ATTEND Internal Medicine
PROC: XW033E5 Introduction of Remdesivir Anti-infective into Peripheral Vein, Percutaneous Approach, New Technology Group 5 (ICD-10-PCS; principal; 2021-04-05)
PROC: XW033H5 Introduction of Tocilizumab into Peripheral Vein, Percutaneous Approach, New Technology Group 5 (ICD-10-PCS; 2021-04-10)
DX: U07.1 COVID-19 (principal); J96.01 Acute respiratory failure with hypoxia; J12.82 Pneumonia due to coronavirus disease 2019; E87.6 Hypokalemia; F41.9 Anxiety disorder, unspecified; D72.819 Decreased white blood cell count, unspecified; L40.9 Psoriasis, unspecified; D72.810 Lymphocytopenia; E86.9 Volume depletion, unspecified; R79.89 Other specified abnormal findings of blood chemistry
CPT/HCPCS: 36415; 71045-TC; 80048-TC; 80053-TC; 80061-TC; 80076-TC; 82550-TC; 82553; 82728-TC; 83615-TC; 83735-TC; 84100-TC; 84443-TC; 84484-TC; 85025-TC; 85378-TC; 85610-TC; 85730-TC; 86140-TC; 86480; 87081-TC; 87899; 94760-TC; 94762-TC; 94799-TC; A4216; G0378; J0696; J1100; J1200; J1650; J2405; J3262; J7030; J7050; J7060

== ENCOUNTER 2021-04-29 21:29 | Inpatient (IN) | payer OTHER ==
[~2021-04-29] VITALS: Ht 162.6 cm; Wt 84.8 kg
[~2021-04-29 21:29] MED LIST: ALBU8.5H8 INH; DEXA4TAB PO
--- NOTE | 2021-04-29 21:36 | NUR ---
Pt bibdaughter c/o "heart and lungs hurting" and feeling sob when walking. Pt aaox4 breathing quickly, but evenly. Pt attached to monitor, vss. Skin is warm and dry. Pt was hospitalized for covid in March. Pt given blanket and call light within reach.Will continue to monitor.
--- NOTE | 2021-04-29 21:50 | NUR ---
blood obtained and sent to lab
--- NOTE | 2021-04-29 21:52 | NUR ---
NEWS COMMENTATOR @BEDSIDE
[2021-04-29 22:16] LABS: HEMATOCRIT 37 % (33-45); HEMOGLOBIN 12.4 g/dL (11.5-14.8); LYMPHOCYTES # (AUTO) 2.2 K/uL (0.8-4.8); LYMPHOCYTES % (AUTO) 46.2 % (20.0-44.0); MEAN CORPUSCULAR HGB CONC 33 g/dl (31.0-36.0); MEAN CORPUSCULAR VOLUME 90 fL (82-100); MONOCYTES # (AUTO) 0.7 K/uL (0.1-1.30); MONOCYTES % (AUTO) 13.6 % (2.0-12.0); NEUTROPHILS # (AUTO) 1.6 K/uL (1.8-8.9); NEUTROPHILS % (AUTO) 33.2 % (43.0-81.0); PLATELET COUNT (AUTO) 186 K/uL (150-450); RED BLOOD CELL COUNT(AUTO) 4.17 MIL/uL (4.0-5.2); WHITE BLOOD COUNT (AUTO) 4.8 K/uL (4.3-11.0)
[2021-04-29 22:33] LABS: CALCIUM, SERUM 8.5 mg/dL (8.5-10.1); CARBON DIOXIDE 23 mmol/L (21-32); CHLORIDE 108 mmol/L (98-107); CREATININE 0.7 mg/dL (0.6-1.3); GLUCOSE 115 mg/dL (74-106); SODIUM SERUM 142 mmol/L (136-145); UREA NITROGEN, BLOOD 14 mg/dL (7-18)
[2021-04-29 22:38] LABS: ALANINE AMINOTRANSFERASE 83 U/L (12-78); ALBUMIN 3.6 g/dL (3.4-5.0); ALKALINE PHOSPHATASE 127 U/L (46-116); ASPARTATE AMINOTRANSFERASE 35 U/L (15-37); BILIRUBIN,DIRECT 0.1 mg/dL (0.0-0.2); BILIRUBIN,TOTAL 0.3 mg/dL (0.2-1.0); TOTAL PROTEIN, SERUM 6.7 g/dL (6.4-8.2)
[2021-04-29] MEDS ORDERED: CEFTRIAXONE 1GM BAG (ER ONLY) 50 ML IV ONE (22:48)
[2021-04-29] MEDS ORDERED: IOHEXOL-350 100 ML VIAL IV ONE (22:49)
[2021-04-29] MEDS ORDERED: CT SWABBABLE VALVE TRANS SET 1 EA INFUS.SET MC ONE (22:49)
[2021-04-29] MEDS ORDERED: AZITHROMYCIN 500 MG VIAL ONE (22:49)
[2021-04-29] MEDS ORDERED: IV NS 0.9% 250 ML IV ONE (22:49)
[2021-04-29] MEDS ORDERED: AZITHROMYCIN 500 MG in IV D5W 250 ML IV ONE (23:00)
[2021-04-29] MEDS ORDERED: CEFTRIAXONE 1 G in IV D5W 50 ML IV ONE (23:00)
--- NOTE | 2021-04-29 23:02 | NUR ---
taken to ct
--- NOTE | 2021-04-29 23:28 | NUR ---
returned from radiology
--- NOTE | 2021-04-29 23:34 | NUR ---
MRSA SWAB COLLECTED AND SENT TO LAB. PATIENT'S BELONGINGS LIST DONE.
[2021-04-30] VITALS (7 sets, daily range): BP systolic 114–149; BP diastolic 72–92
--- NOTE | 2021-04-30 00:55 | NUR ---
gave report to JAMIE Sands for margie
--- NOTE | 2021-04-30 02:15 | NUR ---
MINA/RN RECEIVED PATIENT FROM [facility]. PATIENT WAS AWAKE, ALERT, ORIENTED, COMFORTABLE, NO C/O PAIN, NO DISTRESS NOTED, MADE COMFORTABLE IN BED, ADMISSION DONE PER PROTOCOL, FALL PRECAUTIONS PER PROTOCOL, TAUGHT HOW TO USE THE CALL LIGHT AND PLACED IT AT BEDSIDE WITHIN REACH. NOTIFIED DR. LAIRD FOR ADMISSION ORDERS. WILL MONITOR PATIENT.
[2021-04-30] MEDS ORDERED: MAGNESIUM HYDROXIDE 30 ML UDC PO PRN (06:00)
[2021-04-30] MEDS ORDERED: TEMAZEPAM 15 MG CAPSULE PO PRN (06:00)
[2021-04-30] MEDS ORDERED: ONDANSETRON HCL/PF 4 MG/2 ML VIAL IVP PRN (06:00)
[2021-04-30] MEDS ORDERED: ALBUTEROL SULFATE INH 18 GM HFA.AER.AD IH SCH (06:00)
[2021-04-30] MEDS ORDERED: HYDROCODONE/APAP 5/325MG TABLET PO PRN (06:00)
[2021-04-30] MEDS ORDERED: ACETAMINOPHEN 325 MG TABLET PO PRN (06:00)
--- NOTE | 2021-04-30 06:07 | NUR ---
MINA/RN PATIENT IS SLEEPING AT THIS TIME, APPEAR COMFORTABLE, NO SIGNS OF DISTRESS NOTED, CALL LIGHT IN REACH, ALL NEEDS ATTENDED AT THIS TIME, WILL CONTINUE TO MONITOR.
[2021-04-30] MEDS ORDERED: ALBUTEROL SULFATE INH 18 GM HFA.AER.AD IH PRN (07:16)
--- NOTE | 2021-04-30 07:20 | NUR ---
RN NOTE OBSERVED PATIENT IN BED AWAKE, ALERT AND ORIENTED X4, ABLE TO VERBALIZE NEEDS,ON O2 VIA NC @2LPM O2 SAT OF 92%, BREATHING EVEN AND UNLABORED, NO COMPLAINS OF CHEST PAIN AT THIS TIME, SR WITH HR OF 72 ON TELE MONITOR, WITH RIGHT HAND GAUGE 20 PATENT FLUSHING WELL, ON IV ATB FOR PNA, AFEBRILE AT THIS TIME, WILL CONTINUE TO MONITOR, BED WHEELS LOCK, SAFETY MEASURES OBSERVED, CALL LIGHT WITHIN REACH.
[2021-04-30] MEDS: CHOLECALCIFEROL 1,000 UNIT TABLET (VIT D3) PO SCH (09:02)
[2021-04-30] MEDS: DEXAMETHASONE SOD PHOSPHATE 10 MG/ML VIAL IV SCH (09:02)
[2021-04-30] MEDS: ZINC SULFATE 220 MG CAPSULE PO SCH (09:02)
[2021-04-30] MEDS: ASCORBIC ACID 500 MG TABLET PO SCH (09:02)
[2021-04-30] MEDS: PANTOPRAZOLE 40 MG TABLET.DR PO SCH (09:02)
[2021-04-30] MEDS: ENOXAPARIN SODIUM 40 MG/0.4 ML DISP.SYRIN SQ SCH (09:06)
--- NOTE | 2021-04-30 19:14 | NUR ---
RN NOTE OBSERVED PATIENT IN BED AWAKE, ALERT AND ORIENTED X4, ABLE TO VERBALIZE NEEDS,ON O2 VIA NC @2LPM O2 SAT OF 93%, BREATHING EVEN AND UNLABORED, NO COMPLAINS OF CHEST PAIN AT THIS TIME, SR WITH HR OF 68 ON TELE MONITOR, WITH RIGHT HAND GAUGE 20 PATENT FLUSHING WELL, ON IV ATB FOR PNA, AFEBRILE AT THIS TIME, WILL CONTINUE TO MONITOR, BED WHEELS LOCK, SAFETY MEASURES OBSERVED, CALL LIGHT WITHIN REACH. WILL ENDORSE TO NOC SHIFT
--- NOTE | 2021-04-30 19:19 | NUR ---
LOFT RIGGER OPENING NOTES: RECEIVED PATIENT AWAKE IN BED, BED IN LOW POSITIN, CALL LIGHTS WITHIN REACH, NO COMPLAIN OF PAIN AND DISCOMNFORT AT THIS TIME, PATIENT IS A/OX4 UPPER SORBIAN SPEAKING, AMBULATORY, WITH IV LINE AT R HAND #22, ON TELE MONITORING WITH READING OF SR 60-68 PATIENT KEPT CLEAN AND DRY, WILL CONTINUE TO MONITOR.
[2021-04-30] MEDS: CEFTRIAXONE 1 G in IV D5W 50 ML IV SCH (22:40)
[2021-04-30] MEDS: AZITHROMYCIN 500 MG in IV D5W 250 ML IV SCH (23:12)
[2021-05-01] VITALS (7 sets, daily range): BP systolic 118–136; BP diastolic 70–76
[2021-05-01 06:08] LABS: BASOPHILS % (AUTO) 0.2 % (0.0-2.0); EOSINOPHILS % (AUTO) 0.1 % (0.0-6.0); HEMATOCRIT 38 % (33-45); HEMOGLOBIN 12.6 g/dL (11.5-14.8); LYMPHOCYTES # (AUTO) 1.2 K/uL (0.8-4.8); LYMPHOCYTES % (AUTO) 12.9 % (20.0-44.0); MEAN CORPUSCULAR HGB CONC 33 g/dl (31.0-36.0); MEAN CORPUSCULAR VOLUME 90 fL (82-100); MONOCYTES # (AUTO) 0.8 K/uL (0.1-1.30); MONOCYTES % (AUTO) 8.4 % (2.0-12.0); NEUTROPHILS # (AUTO) 7.2 K/uL (1.8-8.9); NEUTROPHILS % (AUTO) 78.4 % (43.0-81.0); PLATELET COUNT (AUTO) 203 K/uL (150-450); RED BLOOD CELL COUNT(AUTO) 4.22 MIL/uL (4.0-5.2); WHITE BLOOD COUNT (AUTO) 9.1 K/uL (4.3-11.0)
--- NOTE | 2021-05-01 06:43 | NUR ---
COMPLAINT INSPECTOR CLOSING NOTES PATIENT SLEEP IN BED COMFORTABLY, BED IN LOW POSITION, CALL LIGHTS WITHIN REACH, NO COMPLAIN OF PAIN AND DISCOMFORT AT THIS TIME, PATIENT IS A/O 4 TAMAZIGHT SPEAKING AND ABLE TO MAKE NEEDS KNOWN, AMBULATORY WITH SUPERVISION, ON TELE MONITORING WITH READING OF SR-65 ,ON 02 INHALATION AT 2LPM, NO RESP DISTRESS WAS OBSERVED, IV LINE AT RT HAND #20 SL. PATIENT KEPT CLEAN AND DRY, ALL NEEDS MET, ENDORSE TO INCOMING SHIFT.
--- NOTE | 2021-05-01 07:21 | NUR ---
RN NOTE OBSERVED PATIENT IN BED AWAKE, ALERT AND ORIENTED X4, ABLE TO VERBALIZE NEEDS,ON O2 VIA NC @2LPM O2 SAT OF 94%, BREATHING EVEN AND UNLABORED, NO COMPLAINS OF CHEST PAIN AT THIS TIME, SR WITH HR OF 68 ON TELE MONITOR, WITH RIGHT HAND GAUGE 20 PATENT FLUSHING WELL, ON IV ATB FOR PNA NO ASE NOTED, ON DVT PPX TREATMENT NO BLEEDING NOTED, AFEBRILE AT THIS TIME, WILL CONTINUE TO MONITOR, BED WHEELS LOCK, SAFETY MEASURES OBSERVED, CALL LIGHT WITHIN REACH.
[2021-05-01] MEDS: PANTOPRAZOLE 40 MG TABLET.DR PO SCH (08:06)
[2021-05-01 08:07] LABS: ALBUMIN 3.4 g/dL (3.4-5.0); BILIRUBIN,TOTAL 0.5 mg/dL (0.2-1.0); CALCIUM, SERUM 8.8 mg/dL (8.5-10.1); CREATININE 0.7 mg/dL (0.6-1.3); MAGNESIUM 2.3 mg/dL (1.8-2.4); PHOSPHORUS 4.1 mg/dL (2.5-4.9); TOTAL PROTEIN, SERUM 6.6 g/dL (6.4-8.2)
[2021-05-01] MEDS: ZINC SULFATE 220 MG CAPSULE PO SCH (09:27)
[2021-05-01] MEDS: CHOLECALCIFEROL 1,000 UNIT TABLET (VIT D3) PO SCH (09:27)
[2021-05-01] MEDS: ASCORBIC ACID 500 MG TABLET PO SCH (09:27)
[2021-05-01] MEDS: DEXAMETHASONE SOD PHOSPHATE 10 MG/ML VIAL IV SCH (09:27)
[2021-05-01] MEDS: ENOXAPARIN SODIUM 40 MG/0.4 ML DISP.SYRIN SQ SCH (09:29)
--- NOTE | 2021-05-01 14:00 | NUR ---
RN NOTE PATIENT SEEN BY LEONEL MCCRAY, UPDATED MD REGARDING PATIENT CURRENT CONDITION.
--- NOTE | 2021-05-01 18:51 | NUR ---
RN NOTE OBSERVED PATIENT IN BED AWAKE, ALERT AND ORIENTED X4, ABLE TO VERBALIZE NEEDS,ON O2 VIA NC @2LPM O2 SAT OF 96%, BREATHING EVEN AND UNLABORED, NO COMPLAINS OF CHEST PAIN AT THIS TIME, SR WITH HR OF 77 ON TELE MONITOR, WITH RIGHT HAND GAUGE 20 PATENT FLUSHING WELL, ON IV ATB FOR PNA NO ASE NOTED, ON DVT PPX TREATMENT NO BLEEDING NOTED, AFEBRILE AT THIS TIME, WILL CONTINUE TO MONITOR, BED WHEELS LOCK, SAFETY MEASURES OBSERVED, CALL LIGHT WITHIN REACH. WILL ENDORSE TO NOC.
--- NOTE | 2021-05-01 19:00 | NUR ---
RN OPENING NOTE RECEIVED PT AWAKE IN BED. A/OX4 VENE[place]UELAN SPEAKING. PT STABLE ON 2L OXYGEN VIA NC, SR @77, NO SOB OR RESPIRATORY DISTRESS NOTED. NO C/O PAIN AT THIS TIME. IV ACCESS IN R HAND G#20. IV IS INTACT, PATENT AND FLUSHING WELL. SAFETY MEASURES MAINTAINED AT ALL TIMES. BED IN LOWEST LOCKED POSITION, HOB ELEVATED, SIDE RAILS UPX2. CALL LIGHT AND TABLE WITHIN REACH. WILL CONTINUE WITH PLAN OF CARE.
[2021-05-01] MEDS: CEFTRIAXONE 1 G in IV D5W 50 ML IV SCH (23:01)
[2021-05-01] MEDS: AZITHROMYCIN 500 MG in IV D5W 250 ML IV SCH (23:35)
[2021-05-02] VITALS: BP 110/74
[2021-05-02 04:00] VITALS: BP 117/72
--- NOTE | 2021-05-02 06:30 | NUR ---
RN CLOSING NOTE PT IS IN BED, EASY TO AROUSE. A/OX4. PT IS STABLE ON OXYGEN 2L NC. NO SOB OR RESPIRATORY DISTRESS NOTED. PT IS AMBULATORY WITH BRP. IV ACCESS L FOREARM G#20 IS INTACT, PATENT, AND FLUSHING WELL. ALL NEEDS HAVE BEEN MET/. ALL CARE, NEEDS, MEDICATIONS, AND TREATMENT ADMINISTERED ANTICIPATED PER ORDER. PT ENCOURAGED TO REPOSITION Q2H AND PRN. SAFETY, SEIZURE, AND ASPIRATION PRECAUTIONS MAINTAINED AT ALL TIMES. BED IN LOWEST LOCKED POSITION, HOB ELEVATED, SIDE RAILS UP X2. CALL LIGHT AND TABLE WITHIN REACH. WILL ENDORSE TO ONCOMING NURSE FOR NILDA.
--- NOTE | 2021-05-02 07:50 | NUR ---
RN NOTE PATIENT IS IN BED WITH HOB AT SEMI BEAULIEU'S POSITION. PATIENT IS ON 2L NC WITH NO SIGNS OF LABORED BREATHING. PATIENT IS AOX4. LFOREARM IV ACCESS IS PATENT AND INTACT. BED IS LOCKED IN THE LOWEST POSITION, 3 GUARD RAILS RAISED, CALL BEAL WITHIN REACH, AND ALL HOSPITAL SAFETY PRECAUTIONS ARE BEING FOLLOWED. WILL CONTINUE OT MONITOR THROUGHOUT SHIFT.
[2021-05-02 08:00] VITALS: BP 130/67
[2021-05-02] MEDS: DEXAMETHASONE SOD PHOSPHATE 10 MG/ML VIAL IV SCH (08:34)
[2021-05-02] MEDS: ASCORBIC ACID 500 MG TABLET PO SCH (08:34)
[2021-05-02] MEDS: PANTOPRAZOLE 40 MG TABLET.DR PO SCH (08:34)
[2021-05-02] MEDS: CHOLECALCIFEROL 1,000 UNIT TABLET (VIT D3) PO SCH (08:34)
[2021-05-02] MEDS: ZINC SULFATE 220 MG CAPSULE PO SCH (08:34)
[2021-05-02] MEDS: ENOXAPARIN SODIUM 40 MG/0.4 ML DISP.SYRIN SQ SCH (08:36)
[2021-05-02] MEDS ORDERED: PANT40TA2 PO (10:27)
[2021-05-02 12:00] VITALS: BP 116/76
[2021-05-02 16:00] VITALS: BP 121/62
--- NOTE | 2021-05-02 18:41 | NUR ---
RN NOTE PATIENT IS IN BED WITH HOB AT SEMI BEAULIEU'S POSITION. PATIENT IS ON 2L NC WITH NO SIGNS OF LABORED BREATHING. PATIENT IS AOX4. LFOREARM IV ACCESS IS PATENT AND INTACT. BED IS LOCKED IN THE LOWEST POSITION, 3 GUARD RAILS RAISED, CALL BEAL WITHIN REACH, AND ALL HOSPITAL SAFETY PRECAUTIONS ARE BEING FOLLOWED. ALL DUE MEDS GIVEN AND PATIENT REMAINED STABLE THROUGHOUT SHIFT. WILL ENDORSE TO ANIMAL HEALTH TECHNICIAN RN.
--- NOTE | 2021-05-02 19:10 | NUR ---
RN NOTE PATIENT DISCHARGED AT THIS TIME. PATIENT SEEMS TO BE AT A STABLE CONDITION.
[2021-05-02] MEDS ORDERED: AZITHROMYCIN 250 MG TABLET PO SCH (23:00)
== END 2021-05-02 20:18 | disposition home or self-care (01) | DRG 177 ==
LOC: ER 21:30 → TELE1 04-30 00:46
PROVIDERS: ADMIT Nurse Practitioner Acute Care; ATTEND Nurse Practitioner Acute Care
DX: U07.1 COVID-19 (principal); J12.82 Pneumonia due to coronavirus disease 2019; R07.9 Chest pain, unspecified; R53.1 Weakness; R06.00 Dyspnea, unspecified; R09.1 Pleurisy; M54.89 Other dorsalgia; E66.01 Morbid (severe) obesity due to excess calories; Z68.32 Body mass index [BMI] 32.0-32.9, adult
CPT/HCPCS: 36415; 71045-TC; 80048-TC; 80053-TC; 80076-TC; 82728-TC; 83735-TC; 84100-TC; 84484-TC; 85025-TC; 85378-TC; 87081-TC; C9803; G0378; J0456; J0696; J1100; J1650; J7050; J7060; Q9967; U0003

== ENCOUNTER 2021-05-05 19:39 | Emergency (ER) | payer OTHER ==
[~2021-05-05] VITALS: Ht 162.6 cm; Wt 84.8 kg
[~2021-05-05 19:39] MED LIST changes: +PANT40TA2 PO
--- NOTE | 2021-05-05 19:42 | NUR ---
Pt bibdaughter c/o anxiety,n/v, and covid+ result from [facility] today. Pt aaox4 breathing evenly, but quickly. Per pt, she was taking an antibiotic that made her nauseous and she became anxious. Pt attached to monitor and pox. left hand 20g initated and blood obtained and sent to lab. WIll continue to monitor.
--- NOTE | 2021-05-05 20:20 | NUR ---
xray at bedside
[2021-05-05] MEDS ORDERED: ONDANSETRON HCL/PF 4 MG/2 ML VIAL ONE (20:26)
[2021-05-05] MEDS ORDERED: ONDANSETRON HCL/PF 4 MG/2 ML VIAL IVP ONE (20:30)
[2021-05-05 20:33] LABS: BASOPHILS % (AUTO) 0.7 % (0.0-2.0); EOSINOPHILS % (AUTO) 0.5 % (0.0-6.0); HEMATOCRIT 41 % (33-45); HEMOGLOBIN 13.8 g/dL (11.5-14.8); LYMPHOCYTES # (AUTO) 1.2 K/uL (0.8-4.8); LYMPHOCYTES % (AUTO) 18.2 % (20.0-44.0); MEAN CORPUSCULAR HGB CONC 34 g/dl (31.0-36.0); MEAN CORPUSCULAR VOLUME 90 fL (82-100); MONOCYTES # (AUTO) 0.2 K/uL (0.1-1.30); MONOCYTES % (AUTO) 3.7 % (2.0-12.0); NEUTROPHILS # (AUTO) 5.1 K/uL (1.8-8.9); NEUTROPHILS % (AUTO) 76.9 % (43.0-81.0); PLATELET COUNT (AUTO) 313 K/uL (150-450); RED BLOOD CELL COUNT(AUTO) 4.56 MIL/uL (4.0-5.2); WHITE BLOOD COUNT (AUTO) 6.6 K/uL (4.3-11.0)
[2021-05-05 20:47] LABS: CALCIUM, SERUM 8.8 mg/dL (8.5-10.1); CARBON DIOXIDE 21 mmol/L (21-32); CHLORIDE 103 mmol/L (98-107); CREATININE 0.7 mg/dL (0.6-1.3); GLUCOSE 169 mg/dL (74-106); POTASSIUM 4.5 mmol/L (3.5-5.1); SODIUM SERUM 137 mmol/L (136-145); UREA NITROGEN, BLOOD 20 mg/dL (7-18)
[2021-05-05 20:56] LABS: ALANINE AMINOTRANSFERASE 52 U/L (12-78); ALBUMIN 3.9 g/dL (3.4-5.0); ALKALINE PHOSPHATASE 98 U/L (46-116); ASPARTATE AMINOTRANSFERASE 28 U/L (15-37); BILIRUBIN,TOTAL 0.6 mg/dL (0.2-1.0); LIPASE 97 U/L (73-393); TOTAL PROTEIN, SERUM 7.3 g/dL (6.4-8.2)
[2021-05-05 21:07] LABS: BILIRUBIN,DIRECT 0.1 mg/dL (0.0-0.2)
[2021-05-05] MEDS ORDERED: IV NS 0.9% 1,000 ML BAG IV ONE (21:30)
[2021-05-05] MEDS ORDERED: ONDA4TAB11 PO (22:09)
--- NOTE | 2021-05-05 22:15 | NUR ---
Patient discharged to home in stable condition. Written and verbal after care instructions given. Patient verbalizes understanding of instruction. IV removed. Catheter intact and site benign. Pressure and 4x4 applied to site. No bleeding noted. Pt ambulatory with a steady gait
[2021-05-06 01:39] VITALS: BP 142/91
== END 2021-05-05 22:15 | disposition home or self-care (01) ==
LOC: ER 19:42
DX: U07.1 COVID-19 (principal); J12.82 Pneumonia due to coronavirus disease 2019; R11.2 Nausea with vomiting, unspecified; Z88.6 Allergy status to analgesic agent; Z88.0 Allergy status to penicillin; Z79.899 Other long term (current) drug therapy
CPT/HCPCS: 36415; 71045; 80048; 80076; 83690; 84484; 85025; 93005; 96361; 96374; 99285; J2405; J7030